=== PATIENT | male | born 1990 | race Asian ===

== ENCOUNTER 2023-01-21 09:45 | Outpatient (RCR) | payer MEDICARE, MEDICAID, SELFPAY | END 2023-05-21 23:59 | disposition home or self-care (01) | PROVIDERS: PCP Family Medicine; Visit Provider Family Medicine | DX: F09 Unspecified mental disorder due to known physiological condition (principal); F84.0 Autistic disorder; Z78.9 Other specified health status; Z51.89 Encounter for other specified aftercare | CPT/HCPCS: 97165; 97530; 97535 ==

== ENCOUNTER 2024-10-01 19:54 | Emergency (ER) | payer MEDICARE, MEDICAID, SELFPAY ==
[2024-10-01] VITALS (7 sets, daily range): BP systolic 116–157; BP diastolic 79–110; PULSE 89–106; RESP 18; TEMP 36.9; O2SAT 96–99; BMI 29.1
--- OUTSIDE RECORDS SUMMARY | 2024-10-01 19:56 | XMS_ITS | Clinical Summary ---
Author Organization [facility] Address [address] [place] [id number] Care Team Providers Care Scale Shooter Name Role Phone Dallin White MD Primary Care Provider Allergies No known active allergies Medications MULTIVITAMIN TABIndications:R outine infant or child health check take 1 tablet by oral route once daily with food 09/01/2008 Active clonazePAM (KLONOPIN) 0.5 mg tablet Take 1 tablet by mouth 2 times daily. 0 02/20/2016 Active amLODIPine (NORVASC) 10 mg tabletIndication s:Benign essential HTN Take 1 Tablet (10 mg) by mouth once daily. 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 Resting tremor 09/01/2008 01/30/2021 Immunizations Immunization Administration Dates Next Due AMB Influenza, IIV4 PF (=>6 mos Flulaval,Fluzone Fluarix)(Flu Clinic Only) 02/21/2017 COVID-19 vaccine (Moderna 100mcg/0.5mL) PF, MDV 02/28/2021,06/06/2020,05/09/2020 DTaP 10/29/1994, 1,1989,05/21,1989 HIB HbOC (HibTITER) 06/03/1990 Hepatitis A (Adult) 12/27/2019,02/20/2016 Hepatitis B (Peds) 06/14/1998,01/18/1998, 998 Influenza A (H1N1), Inactivated 03/30/2009 Influenza, IIV3 (Age >=3 years) 02/23/2013,03/31,03/15/2010 Influenza, IIV4 01/17/2022,,02/09/2020,03/02,02/23/2018,02/20/2016 Influenza, Injectable, Mdck, Quadrivalent, W/preservative 02/09/2020,02/23/2018 Influenza,LAIV4 Live Intrana bolivar (Flumist) 02/05/2011 MMR 12/07/1995,06/03/1990 Meningococcal Vaccine (Menactra) 11/15/2007 Oral Polio Vaccine 10/29/1994, 1,1989,03/23 Td (Age >=7 Years) 10/08/2004 Td, Preservative Free (age >= 7 Years) 5 Tdap 01/30/2021,12/23/2010 Family History * Patient is adopted Medical History Relation Name Comments Unknown Other unknown adopted Relation Name Status Comments Other Social History Tobacco Use Types Packs/Day Years Used Date Smoking Tobacco: Never Smokeless Tobacco: Never Tobacco Cessation:Counseling Given: No Alcohol Use Standard Drinks/Week Comments Yes 0 (1 standard drink = 0.6 oz pur e alcohol) rare PHQ-2 Answer Date Recorded PHQ-2 TOTAL SCORE 0 12/27/2019 Social Connections Answer Date Recorded Do you often feel lonely or isolated from those around you? 0 11/04/2023 Financial Resource Strain Answer Date R ecorded Difficulty of Paying Living Expenses 3 11/04/2023 Difficulty of Paying Living Expenses Not on file 11/04/2023 Food Insecurity Answer Date Recorded Do you worry your food will run out before you are able to buy more? 1 11/04/2023 Transportation Needs Answer Date Record ed Does lack of transportation keep you from medica l appointments? 1 11/04/2023 Does lack of transportation keep you from work, meetings or getting things that you need? 1 11/04/2023 Housing Stability Answer Date Recorded What is your housing situation today? 1 11/04/2023 Utilities Answer Date Recorded Do you have trouble paying f or utilities (for example, heat, electricity, water, phone)? 1 11/04/2023 Sex and Gender Information Value Date Recorded Sex Assigned at Not on file Legal Sex Male 7:31 AM CUSTOMER SPECIALIST Gender Identity Not on file Sexual Orientation Not on file Obstetrics History Last Filed Vital Signs Vital Sign Reading Time Taken Comments Blood Pressure 118/82 11/04/2023 8:04 AM CDT Pulse 78 11/04/2023 8:04 AM CDT Temperature 37.3 C (99.1 F) 12/27/2019 3:20 PM CDT Respiratory Rate - - Oxygen Saturation 96% 11/04/2023 8:04 AM CDT Inhaled Oxygen Concentration - - Weight 80.4 kg (177 lb 3.2 oz) 11/04/2023 8:04 A M CDT Height 170.5 cm (5' 7.13) 11/04/2023 8:04 AM CD T Body Mass Index 27.65 11/04/2023 8:04 AM CDT Plan of Treatment Health Maintenance Due Date Last Done Comments Depression screening for age 12+ 2001 COVID-19 vaccine series ( season) 2023 02/15/2022, 02/28/2021, 06/06/2020, Additional history exists BMI (ht and wt on same day) for age 18+ 11/03/2024 11/04/2023, 01/17/2022, 01/30/2021, Additional history exists Influenza Vaccine (Season Ended) 2024 01/17/2022, 01/30/2021, 02/09/2020, Additional history exists Lipids for age 35-44 11/03/2028 11/04/2023, 04/22/2022, 01/31/2020, Additional history exists Tetanus booster 01/30/2031 01/30/2021, 12/12, 10/08/2004, Additional history exists Hepatitis B series for 19+ Completed 06/14, 01/18/1998, 11/30/1997 Tdap Completed 01/30/2021, 12/23/2010 HIV for age 15-65 Completed 04/22/2022 Hepatitis C screening for age 18-79 Completed 04/22/2022 Pneumococcal series for age 6-49 Aged Out No longer eligible based on patient's age to complete this topic Procedures Procedure Name Priority Date/Time Associated Diagnosis Comments LIPID PANEL W REFLEX MEASURED LDL Routine 11/04/2023 8:28 AM CDT Hyperlipidemia, unspecified hyperlipidemia type LC HIV-1/O/2, 4TH GENERATION Routine 04/22/2022 9:40 AM CUSTOMER SPECIALIST Screening for HIV (human immunodeficiency virus) LC HCV ANTIBODY RFX TO QUANT PCR Routine 04/22/2022 9:40 AM CUSTOMER SPECIALIST Need for hepatitis C screening test from Last 3 Months or Most Recently Relevant to Health Maintenance Results * (ABNORMAL) LIPID PANEL W REFLEX MEASURED LDL (11/04/2023 8:28 AM CDT) CHOLESTEROL,TOTAL 239(H) 100 - 199 mg/dL 11/04/2023 9:13 PM CDT [facility] Comment: Cholesterol, Total Reference Ranges Desirable <200 mg/dL Borderline 200-239 mg/dL High >=240 mg/dL TRIGLYCERIDES 154(H) <150 mg/dL 11/04/2023 9:13 PM CDT [facility] HDL CHOLESTEROL 48 >40 mg/dL 9:13 PM CDT [facility] NON-HDL CHOLESTEROL 191(H) <145 mg/dl 11/04/2023 9:13 PM CDT [facility] CHOL/HDL RATIO 4.98(H) <4.50 11/04/2023 9:13 PM CDT [facility] LDL CHOLESTEROL 160(H) <=130 mg/dL 11/04/2023 9:13 PM CDT [facility] VLDL CHOLESTEROL 31(H) <=30 mg/dL 11/04/2023 9:13 PM CDT [facility] PROVIDER ORDERED STATUS RANDOM 11/04/2023 9:13 PM CDT [facility] Blood BLOOD SPECIMEN / Unknown Venipuncture / Unknown 11/04/2023 8:28 AM CDT 11/04/2023 8:29 AM CDT Dallin White MD CHEMISTRY Final Result [facility] [address] [place] [id number], [place] * LC HCV ANTIBODY RFX TO QUANT PCR (04/22/2022 9:40 AM CUSTOMER SPECIALIST) HCV Ab <0.1 0.0 - 0.9 s/co ratio 04/25/2022 8:10 AM CUSTOMER SPECIALIST [facility] ([facility]) Blood BLOOD SPECIMEN / Unknown Butterfly / Unknown 04/22/2022 9:40 AM CUSTOMER SPECIALIST 04/22/2022 9:47 AM CUSTOMER SPECIALIST Narrative [facility] ([facility]) - 04/25/2022 8:10 AM CUSTOMER SPECIALIST Performed at: [address] [place] [id number] Air Intercept Controller Supervisor: Prem Barrett MD, Phone: [phone] us Dallin White MD LABORATORY Final Result [facility] ([facility]) [address] [place] [id number], [place] * LC HIV-1/O/2, 4TH GENERATION (04/22/2022 9:40 AM CUSTOMER SPECIALIST) HIV Scr 4th Gen Non Reactive Non Reactive 04/25/2022 3:07 AM CUSTOMER SPECIALIST [facility] ([facility]) Comment: HIV Negative HIV-1/HIV-2 antibodies and HIV-1 p24 antigen were NOT detected. There is no laboratory evidence of HIV infection. Blood BLOOD SPECIMEN / Unknown Butterfly / Unknown 04/22/2022 9:40 AM CUSTOMER SPECIALIST 04/22/2022 9:47 AM CUSTOMER SPECIALIST [facility]ative [facility] - 04/25/2022 3:07 AM CUSTOMER SPECIALIST Performed at: [address] [id number] [employer] Inter[employer] Controller Supervisor: Prem Barrett MD, Phone: [phone] us Dallin White MD LABORATORY Final Result [facility] ([facility]) [facility] [place] [address], [place] from Last 3 Months or Most Recently Relevant to Health Maintenance Insurance MEDICAID MEDICARE [place] ONLY MEDICARE PART A HB ONLY MEDICARE PART B HB ONLY Advance Directives Documents on File Type Date Recorded Patient Chief Dietitian Expl anation Treatment Guidelines 11/10/2023 Care Teams Scale Shooter Relationship Specialty Start Date End Date Dallin White MD [address] [place] [address] PCP - General Family Practice 09/07/12
[2024-10-01] MEDS: 0.9 % SODIUM CHLORIDE 1000 ml 1,000 ML IV ×2 (20:21)
--- NOTE | 2024-10-01 20:28 | ED.GENADULT ---
HPI - General Adult General Time Seen by Provider: 20:28 Date Seen: 10/01/24 Chief complaint: Unspecified Complaint, Adult Stated complaint: Heat Stroke concerns Time Seen by Provider: 10/01/24 20:10 Source: patient, family and RN notes reviewed Mode of arrival: ambulatory Limitations: no limitations History of Present Illness HPI narrative: Patient is ambulatory into the ED with his mom for concern for dehydration and heat exposure. 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 He did try to stay hydrated. He came home, came to dinner and did not eat anything, states he felt like he had an upset stomach. At this time he denies any nausea vomiting or abdominal pain, no diarrhea, no fevers. He denies any headache. He did feel lightheaded and dizzy. They noted that his ataxia was worsening with increased tremors, even when at rest. He does take clonazepam twice a day for this, normally takes his evening dose at dinner but did not take it. They became concerned when his tremors were so much more active at rest than they are baseline. His mom notes that he never misses a meal, this concerned her. He is adopted from [place], she states that his hepatitis status was checked before coming into the country, they have done testing on his ataxia but his family history is not known. He has a neurologist at the [facility]. Related Data Home Medications ?Medication ?Instructions ?Recorded ?Confirmed amlodipine 10 mg tablet 10 mg PO DAILY 10/01/24 10/01/24 clonazepam 0.5 mg tablet 0.5 mg PO BID 10/01/24 10/01/24 Allergies Allergy/AdvReac Type Severity Reaction Status Date / Time No Known Drug Allergies Allergy Verified 10/01/24 20:07 Review of Systems Status of ROS: Reports: 6 or more systems reviewed and unremarkable except as noted in History and below [facility] Medical History Ataxia ?R27.0 - Ataxia, unspecified (ICD-10) Social History Smoking Status: Never smoker Second hand tobacco smoke exposure: No How often do you have a drink containing alcohol: never AUDIT-C Alcohol total score: 0 Non-prescribed substance use: denies use Exam Const: Vital Signs, click to edit/add: Vital Signs - 24 hr 10/01/24 20:05 10/01/24 20:08 10/01/24 20:17 Temperature 98.4 F Pulse Rate 106 H 103 H Pulse Rate [Right Pulse Oximeter] 105 H Respiratory Rate 18 18 18 Blood Pressure 134/110 H 157/91 H Blood Pressure [Ri ght Upper Arm] 116/85 Pulse Oximetry 96 99 96 Oxygen Delivery Me thod Room Air 10/01/24 21:01 10/01/24 21:09 10/01/24 23:22 Temperature 98.4 F Pulse Rate 95 Pulse Rate [Right Pulse Oximeter] 89 Respiratory Rate 18 18 Blood Pressure 123/79 Blood Pressure [Ri ght Upper Arm] 121/79 Pulse Oximetry 98 98 98 Oxygen Delivery Me thod Room Air 10/01/24 23:23 Temperature 98.4 F Pulse Rate Pulse Rate [Right Pulse Oximeter] 89 Respiratory Rate 18 Blood Pressure Blood Pressure [Ri ght Upper Arm] 121/79 Pulse Oximetry Oxygen Delivery Me thod 34-year-old male who his alert come interactive, no apparent distress. He has tremors and myoclonic appearing jerks throughout his body. He is able to speak, is very pleasant. Pupils equal round reactive, sclera clear. Speak in complete sentences, speech is normal. Symmetrical facial function. Lip sent package drier cracked. Neck is supple, no adenopathy. Lungs are clear, good air entry, no wheeze or crackles, no tachypnea. CV slightly fast but regular, no murmur, normal S1-S2, no S3-S4. Abdomen is soft, nontender, nondistended, no organomegaly, rebound or guarding. No lower extremity edema. Skin visualized without any rash. Skin is warm and dry, not diaphoretic. Documenting provider has reviewed patient's vital signs: yes Course Course ED Course: Nursing staff had appropriately started an IV and started a L of IV fluids for this patient. Will get appropriate labs, may need more than 1 L of fluids as I suspect this could be heat related injury. He is not febrile. He normally takes his clonazepam at dinnertime, miss the dose. Will give him his oral dose of 0.5 mg clonazepam here and see if this does help with the hydration. Reevaluation(s) Time of Reevaluation #1: 23:00 Reevaluation #1: Patient is feeling much better. It both he and his mom feel his tremors are much better, back to baseline when he is lying down. He is really having minimal tremors now. He does not feel lightheaded or dizzy, has been up to urinate. Did get 3 L of fluid. His lactate still is not completely back to normal. He does not have a fever, has no symptoms of illness. His stomach is feeling better. We discussed the importance of avoidance of the heat tomorrow. I need him to continue drinking fluids. Ultimately may have recommended observation overnight but we have absolutely no capacity. He is feeling better and would like to discharge to home. We did review the mildly elevated liver enzymes, most common thing is fatty liver disease. This should be further evaluated in rechecked in clinic. It is possible to elevate these due to heat illness but should resolve with that as well. Stressed the avoidance of further heat exposure tomorrow. Vital Signs Vital signs: Initial Vital Signs Pulse Rate 106 H 10/01/24 20:05 Respiratory Rate 18 10/01/24 20:05 Blood Pressure 134/110 H 10/01/24 20:05 Blood Pressure Mean 118 H 10/01/24 20:05 Pulse Oximetry 96 10/01/24 20:05 Vital Signs Pulse Rate 106 H 10/01/24 20:05 Respiratory Rate 18 10/01/24 20:05 Blood Pressure 134/110 H 10/01/24 20:05 Pulse Oximetry 96 10/01/24 20:05 Temperature 98.4 F 10/01/24 23:23 Pulse Rate 89 10/01/24 23:23 Respiratory Rate 18 10/01/24 23:23 Blood Pressure 121/79 10/01/24 23:23 Pulse Oximetry 98 10/01/24 23:22 Oxygen Delivery Method Room Air 10/01/24 23:22 Medications Administered Medications: Discontinued Medications Generic Name Dose Route Start Last Admin Trade Name Freq PRN Reason Stop Dose Admin Clonazepam 0.5 mg 10/01/24 20:45 10/01/24 20:58 Clonazepam 0.5 Mg Tablet PO 10/01/24 20:46 0.5 mg ONCE ONE Administration Sodium Chloride 1,000 mls @ 1,000 mls/hr 10/01/24 20:17 10/01/24 21:56 0.9 % Sodium Chloride 1000 Ml IV 10/01/24 21:16 Infused .Q1H DIXIE Infusion Sodium Chloride 1,000 mls @ 1,000 mls/hr 10/01/24 20:17 10/01/24 21:00 0.9 % Sodium Chloride 1000 Ml IV 10/01/24 21:16 Infused .Q1H DIXIE Infusion Lactated Ringer's 1,000 mls @ 1,000 mls/hr 10/01/24 21:21 10/01/24 22:56 Lactated Ringers 1000 Ml IV 10/01/24 22:20 Infused .Q1H ONE Infusion Medical Decision Making Lab Data Lab results reviewed: Yes I reviewed the patient's lab results Labs: Lab Results 10/01/24 10/01/24 10/01/24 Range/Units 20:05 21:08 21:20 WBC 14.20 H (4.50-11.00) K/uL RBC 5.32 (4.30-5.90) m/uL Hgb 15.9 (13.5-17.5) gm/dL Hct 44.7 (37.0-53.0) % MCV 84 (80-100) fL MCH 30 (26-34) pg MCHC 36 (32-36) gm/dL RDW Coeff of Ya 11.6 (11.5-15.5) % Plt Count 300 (140-440) K/uL Neut % (Auto) 80.8 H (42.0-72.0) % Lymph % (Auto) 10.9 L (20-44) % [place] % (Auto) 7.7 (0.0-11.0) % Eos % (Auto) 0.1 (0.0-7.0) % Baso % (Auto) 0.1 (0.0-3.0) % Neut # (Auto) 11.50 H (1.7-7.0) K/uL Lymph # (Auto) 1.50 (0.90-2.90) K/uL [place] # (Auto) 1.10 H (0.00-0.90) K/UL Eos # (Auto) 0.00 (0.00-0.50) K/uL Baso # (Auto) 0.00 (0.00-0.30) K/uL Abs Immat Gran (auto) 0.10 (0.00-0.30) K/uL Imm/Tot Granulo (auto) 0.4 % INR 0.92 (0.91-1.10) APTT 28 (23-33) Seconds VBG pH 7.337 (7.32-7.43) VBG pCO2 38 L (40-50) mmHG VBG pO2 79.1 H (25-47) mmHG VBG HCO3 20 L (21-28) mmol/L Sodium 126 L (135-149) mmol/L Potassium 3.8 (3.6-5.1) mmol/L Chloride 92 L (96-114) mmol/L Carbon Dioxide 18 L (20-32) mmol/L Anion Gap 16 H (7-15) mEq/L BUN 16 (5-24) mg/dL Creatinine 0.8 (0.5-1.5) mg/dL Estimated Creat Clear 112.11 Estimated GFR 118 ml/min Glucose 99 (60-115) mg/dL Lactate 3.8 H (0.5-1.9) mmol/L Calcium 10.0 (8.4-10.6) mg/dL Total Bilirubin 1.3 (0.1-1.5) mg/dL AST 80 H (12-35) U/L ALT 114 H (4-50) U/L Alkaline Phosphatase 66 (40-150) U/L C-Reactive Protein < 0.5 L (0.5-1.0) mg/dL Total Protein 8.3 (6.0-8.3) g/dL Albumin 5.3 H (3.3-5.0) g/dL Procalcitonin 0.07 (<0.50) ng/mL Urine Color Light yellow (Yellow) Urine Appearance Clear (Clear) Urine pH 6.0 (5.0-8.5) Ur Specific [place] 1.010 (1.000-1.030) Urine Protein Negative (Negative) Urine Glucose (UA) Negative (Negative) Urine Ketones 2+ A (Negative) Urine Blood Negative (Negative) Urine Nitrite Negative (Negative) Urine Bilirubin Negative (Negative) Urine Urobilinogen 0.2 (0.2-1.0) Ur Leukocyte Esterase Negative (Negative) Urine RBC 0-2 (0-2) Urine WBC 0-2 (0-5) Ur Squamous Epith Cells None (None-Few) Urine Bacteria None (None) Lab Acknowledgement Test Added 10/01/24 Range/Units 22:15 WBC (4.50-11.00) K/uL RBC (4.30-5.90) m/uL Hgb (13.5-17.5) gm/dL Hct (37.0-53.0) % MCV (80-100) fL MCH (26-34) pg MCHC (32-36) gm/dL RDW Coeff of Ya (11.5-15.5) % Plt Count (140-440) K/uL Neut % (Auto) (42.0-72.0) % Lymph % (Auto) (20-44) % [place] % (Auto) (0.0-11.0) % Eos % (Auto) (0.0-7.0) % Baso % (Auto) (0.0-3.0) % Neut # (Auto) (1.7-7.0) K/uL Lymph # (Auto) (0.90-2.90) K/uL [place] # (Auto) (0.00-0.90) K/UL Eos # (Auto) (0.00-0.50) K/uL Baso # (Auto) (0.00-0.30) K/uL Abs Immat Gran (auto) (0.00-0.30) K/uL Imm/Tot Granulo (auto) % INR (0.91-1.10) APTT (23-33) Seconds VBG pH (7.32-7.43) VBG pCO2 (40-50) mmHG VBG pO2 (25-47) mmHG VBG HCO3 (21-28) mmol/L Sodium 129 L (135-149) mmol/L Potassium 4.0 (3.6-5.1) mmol/L Chloride 98 (96-114) mmol/L Carbon Dioxide 19 L (20-32) mmol/L Anion Gap 12 (7-15) mEq/L BUN 12 (5-24) mg/dL Creatinine 0.7 (0.5-1.5) mg/dL Estimated Creat Clear 128.13 Estimated GFR 123 ml/min Glucose 95 (60-115) mg/dL Lactate 2.9 H (0.5-1.9) mmol/L Calcium 8.7 (8.4-10.6) mg/dL Total Bilirubin (0.1-1.5) mg/dL AST (12-35) U/L ALT (4-50) U/L Alkaline Phosphatase (40-150) U/L C-Reactive Protein (0.5-1.0) mg/dL Total Protein (6.0-8.3) g/dL Albumin (3.3-5.0) g/dL Procalcitonin (<0.50) ng/mL Urine Color (Yellow) Urine Appearance (Clear) Urine pH (5.0-8.5) Ur Specific [place] (1.000-1.030) Urine Protein (Negative) Urine Glucose (UA) (Negative) Urine Ketones (Negative) Urine Blood (Negative) Urine Nitrite (Negative) Urine Bilirubin (Negative) Urine Urobilinogen (0.2-1.0) Ur Leukocyte Esterase (Negative) Urine RBC (0-2) Urine WBC (0-5) Ur Squamous Epith Cells (None-Few) Urine Bacteria (None) Lab Acknowledgement Discharge Plan Discharge Clinical Impression: Heat exhaustion Qualifiers: Encounter type: initial encounter Qualified Code(s): T67.5XXA - Heat exhaustion, unspecified, initial encounter Patient Disposition: Home, Self-Care Condition: Improved Instructions: Heat Exhaustion (ED) Additional Instructions: Need to continue hydrating at home, do recommend some Gatorade or similar sports drink tomorrow. Your liver enzymes were mildly elevated, do recommend that these are read checked in clinic within the next 1-2 weeks. Your primary care provider can work this up further if they remain elevated. Fatty liver is 1 of the most common causes in the [place]. It is extremely important that you avoid the heat tomorrow. If you have any further concerns, have return of symptoms, please seek re-evaluation. Activity Level: Activity as Tolerated Discharge Diet: Regular Prescriptions: No Action clonazepam 0.5 mg tablet 0.5 mg PO BID amlodipine 10 mg tablet 10 mg PO DAILY Follow Up/Referrals: Dallin White MD [Primary Care Provider, Family Practice] Stand Alone Forms: [employer] Info Instructions
[2024-10-01 20:30] LABS: Basophils Percent Auto 0.1 % (0.0-3.0); Eosinophils Percent Auto 0.1 % (0.0-7.0); Hematocrit 44.7 % (37.0-53.0); Hemoglobin* 15.9 gm/dL (13.5-17.5); Immature Granulocytes Pct Auto 0.4 %; Lymphocytes Percent Auto 10.9 % (20-44); Mean Corpuscular HGB Conc 36 gm/dL (32-36); Mean Corpuscular Hemoglobin 30 pg (26-34); Mean Corpuscular Volume 84 fL (80-100); Monocytes Percent Auto 7.7 % (0.0-11.0); Neutrophils Percent Auto 80.8 % (42.0-72.0); Platelet Count* 300 K/uL (140-440); RDW Coefficient of Variation % 11.6 % (11.5-15.5); Red Blood Count 5.32 m/uL (4.30-5.90)
[2024-10-01 20:31] LABS: HCO3 VBG 20 mmol/L (21-28); Lactate* 3.8 mmol/L (0.5-1.9); PCO2 VBG 38 mmHG (40-50); PO2 VBG 79.1 mmHG (25-47); pH VBG 7.337 (7.32-7.43)
[2024-10-01 20:38] LABS: Slide Review Reflex No
[2024-10-01 20:48] LABS: Albumin* 5.3 g/dL (3.3-5.0); Chloride* 92 mmol/L (96-114); Potassium* 3.8 mmol/L (3.6-5.1); Sodium* 126 mmol/L (135-149)
[2024-10-01 20:50] LABS: Blood Urea Nitrogen* 16 mg/dL (5-24); Creatinine* 0.8 mg/dL (0.5-1.5); Est. Creatinine Clearance* 112.11; Estimated Glomerular Filt Rate 118 ml/min; INR 0.92 (0.91-1.10); Partial Thromboplastin Time* 28 Seconds (23-33); Prothrombin Time 13.2 Seconds
[2024-10-01 20:51] LABS: Alanine Aminotransferase* 114 U/L (4-50); Alkaline Phosphatase* 66 U/L (40-150); Anion Gap 16 mEq/L (7-15); Aspartate Amino Transferase* 80 U/L (12-35); Bilirubin Total* 1.3 mg/dL (0.1-1.5); Carbon Dioxide* 18 mmol/L (20-32); Glucose* 99 mg/dL (60-115); Total Protein* 8.3 g/dL (6.0-8.3)
[2024-10-01] MEDS: clonazePAM 0.5 MG TABLET PO (20:58)
[2024-10-01 21:28] LABS: Appearance Urine Clear (Clear); Bilirubin Urine Negative (Negative); Blood Urine Negative (Negative); Color Urine Light yellow (Yellow); Glucose Urine Negative (Negative); Ketones Urine 2+ (Negative); Leukocyte Esterase Urine Negative (Negative); Nitrite Urine Negative (Negative); Protein Urine Negative (Negative); Urobilinogen Urine 0.2 (0.2-1.0)
[2024-10-01] MEDS: LACTATED RINGERS 1000 ML 1,000 ML IV (21:34)
[2024-10-01 21:55] LABS: C Reactive Protein* < 0.5 mg/dL (0.5-1.0)
[2024-10-01 21:56] LABS: RBC Urine 0-2 (0-2); WBC Urine 0-2 (0-5)
[2024-10-01 22:01] LABS: Procalcitonin* 0.07 ng/mL (<0.50)
[2024-10-01 22:16] LABS: Lactate* 2.9 mmol/L (0.5-1.9)
[2024-10-01 22:34] LABS: Chloride* 98 mmol/L (96-114)
[2024-10-01 22:35] LABS: Sodium* 129 mmol/L (135-149)
[2024-10-01 22:37] LABS: Blood Urea Nitrogen* 12 mg/dL (5-24); Creatinine* 0.7 mg/dL (0.5-1.5); Est. Creatinine Clearance* 128.13; Estimated Glomerular Filt Rate 123 ml/min
[2024-10-01 22:38] LABS: Anion Gap 12 mEq/L (7-15); Calcium* 8.7 mg/dL (8.4-10.6); Carbon Dioxide* 19 mmol/L (20-32); Glucose* 95 mg/dL (60-115)
== END 2024-10-01 23:23 | disposition home or self-care (01) ==
PROVIDERS: Emergency Provider Family Medicine; PCP Family Medicine
DX: T67.5XXA Heat exhaustion, unspecified, initial encounter (principal)
CPT/HCPCS: 36415; 80048; 80053; 81001; 82803; 83605; 84145; 85025; 85610; 85730; 86140; 94761; 99284; A9270; J7030; J7120